=== PATIENT | female | born 1995 | race Caucasian/White ===

== ENCOUNTER 2024-03-11 10:11 | Outpatient (CLI) | payer BC | END 2024-03-11 10:12 | disposition home or self-care (01) | LOC: CSHRAD 10:11 | PROVIDERS: ATTEND Student in an Organized Health Care Education/Training Program | DX: R06.02 Shortness of breath (principal); R07.89 Other chest pain; K63.89 Other specified diseases of intestine | CPT/HCPCS: 71046 ==